=== PATIENT | female | born 2000 | race Caucasian/White ===

== ENCOUNTER 2024-12-10 16:44 | Emergency (ER) | payer OTHER ==
[2024-12-10 17:19] VITALS: TEMP 98.4
[2024-12-10] MEDS: SODIUM CHLORIDE 0.9% 1,000 ML IV ONE (17:54)
[2024-12-10] MEDS: ONDANSETRON 4 MG/2 ML VIAL IVP STA (17:55)
[2024-12-10 17:57] LABS: Basophils # (A) 0.04 10*3/uL (0.00-0.10); Basophils % (A) 0.4 %; Eosinophils # (A) 0.06 10*3/uL (0.04-0.35); Eosinophils % (A) 0.7 %; HCT 39.0 % (37.2-46.3); HGB 13.3 g/dL (12.0-15.0); Lymphocytes # (A) 1.96 10*3/uL (0.90-5.00); Lymphocytes % (A) 21.3 %; MCH 30.1 pg (27.0-32.0); MCHC 34.1 g/dL (32.0-37.0); MCV 88.2 fL (80.0-97.0); Monocytes # (A) 0.58 10*3/uL (0.20-1.00); Monocytes % (A) 6.3 %; Neutrophils # (A) 6.56 10*3/uL (1.80-7.70); Neutrophils % (A) 71.1 %; Platelet Count 235 10*3/uL (140-440); RBC 4.42 10*6/uL (4.10-5.20); RDW 13.0 % (11.5-14.5); WBC 9.22 10*3/uL (4.50-10.00)
--- NOTE | 2024-12-10 18:07 | ED ---
Nausea/Vomiting/Diarrhea HPI - General Source: patient, RN notes reviewed Mode of arrival: ambulatory Limitations: no limitations <Tanya Kumari - Last Filed: 12/10/24 19:19> <oDv Badillo - Last Filed: 12/11/24 02:36> - General Chief complaint: Nausea/Vomiting/Diarrhea Stated complaint: vomiting Time Seen by Provider: 12/10/24 17:40 - History of Present Illness Initial comments: 24-year-old G2, P1 female approximately 10 weeks gestation presenting to the ER for evaluation of nausea and vomiting. Patient states that she has been 5 weeks she has been having severe nausea and vomiting. [place] [facility] [place] Patient was ultimately discharged home prescribe Zofran. She states she was only prescribed 10 pills and has been using it sparingly. Patient reports 2 days ago she ran out of Zofran and and for the past 2 days has not been able to keep food or liquids down. She states everything that she attempts to eat she immediately vomits up. She denies any hematemesis or coffee-ground emesis. Patient denies any abdominal pain or vaginal bleeding or discharge. She does admit to urinary frequency and denies any hematuria or dysuria. Patient states she does have mild "kidney pain" and contributes this to dehydration. She does report with previous she was admitted as she has a history of kidney stones and had to have ureteral stent placement due to pyelonephritis. She denies any fevers, chills, chest pain, shortness of breath, dizziness, lightheadedness, headache, peripheral edema. She is scheduled to follow-up with BUSINESS REPORTING DEVELOPER out of [facility] on Friday for initial appointment. She does report she had ult rasound completed at 8 weeks which was normal per patient. (Tanya Kumari) - Related Data Previous Rx's Medication Instructions Recorded Cephalexin [Keflex] 500 mg PO Q12HR 5 Days #10 cap 12/10/24 Ondansetron Odt [Zofran Odt] 4 mg PO Q8HR PRN #20 tab 12/10/24 Allergies Allergy/AdvReac Type Severity Reaction Status Date / Time promethazine [From Phenergan] AdvReac Anaphylaxis Verified 12/10/24 17:19 Review of Systems ROS Other: All systems not noted in ROS Statement are negative. <Tanya Kumari - Last Filed: 12/10/24 19:19> ROS Other: All systems not noted in ROS Statement are negative. <Dov Badillo - Last Filed: 12/11/24 02:36> ROS Statement: Those systems with pertinent positive or pertinent negative responses have been documented in the HPI. Past Medical History Additional Past Medical History / Comment(s): renal stones Past Surgical History: Section, Orthopedic Surgery, Tonsillectomy Past Psychological History: Anxiety Smoking Status: Current every day smoker Past Alcohol Use History: None Reported Past Drug Use History: None Reported <Tanya Kumari - Last Filed: 12/10/24 19:19> General Exam Limitations: no limitations General appearance: alert, in no apparent distress Respiratory exam: Present: normal lung sounds bilaterally. Absent: respiratory distress, wheezes, rales, rhonchi, stridor Cardiovascular Exam: Present: regular rate, normal rhythm, normal heart sounds. Absent: systolic murmur, diastolic murmur, rubs, gallop, clicks GI/Abdominal exam: Present: soft, tenderness (LLQ), normal bowel sounds, other (Well-healed horizontal suprapubic surgical incision consistent with section) Extremities exam: Present: normal inspection, full ROM, normal capillary refill. Absent: tenderness, pedal edema, joint swelling, calf tenderness Neurological exam: Present: alert, oriented X3, CN II-XII intact Skin exam: Present: warm, dry, intact, normal color. Absent: rash <Tanya Kumari - Last Filed: 12/10/24 19:19> Course <Tanya Kumari - Last Filed: 12/10/24 19:19> Vital Signs 12/10/24 12/10/24 17:13 21:05 Temperature 98.4 F Pulse Rate 75 72 Respiratory 22 16 Rate Blood Pressure 121/67 116/79 O2 Sat by Pulse 99 100 Oximetry - Reevaluation(s) Reevaluation #1: 12/10/24 19:21 Patient signed out to Dov Badillo PA-C (Tanya Kumari) Medical Decision Making - Lab Data Result diagrams: 12/10/24 17:40 12/10/24 17:40 <Tanya Kumari - Last Filed: 12/10/24 19:19> - Lab Data Result diagrams: 12/10/24 17:40 12/10/24 17:40 <Dov Badillo - Last Filed: 12/11/24 02:36> - Medical Decision Making Was pt. sent in by a medical professional or institution ([facility], [employer], urgent care, hospital, or shelter...) When possible be specific @ -No Did you speak to anyone other than the patient for history (EMS, parent, family, police, friend...)? What history was obtained from this source @ -No Did you review nursing and triage notes (agree or disagree)? Why? @ -I reviewed and agree with nursing and triage notes Were old charts reviewed (outside hosp., previous admission, EMS record, old EKG, old radiological studies, urgent care reports/EKG's, shelter records)? Report findings @ -No old charts were reviewed Differential Diagnosis (chest pain, altered mental status, abdominal pain women, abdominal pain men, vaginal bleeding, weakness, fever, dyspnea, syncope, headache, dizziness, GI bleed, back pain, seizure, CVA, palpatations, mental health, musculoskeletal)? @ -UTI, gastroenteritis, hyperemesis syndrome, pyelonephritis, threatened ... This list is not meant to be all-inclusive EKG interpreted by me (3pts min.). @ -None done X-rays interpreted by me (1pt min.). @ -None done CT interpreted by me (1pt min.). @ -None done U/S interpreted by me (1pt. min.). @ -Pending What testing was considered but not performed or refused? (CT, X-rays, U/S, labs)? Why? @ -None What meds were considered but not given or refused? Why? @ -None Did you discuss the management of the patient with other professionals ( professionals i.e. RIK Beth, [employer], lab, RT, psych nurse, social sciences chair, banking representative, teacher, district fire management officer, human services case manager)? Give summary @ -No Was smoking cessation discussed for >3mins.? @ -No Was critical care preformed (if so, how long)? @ -No Were there social determinants of health that impacted care today? How? (Homelessness, low income, unemployed, alcoholism, drug addiction, transportation, low edu. Level, literacy, decrease access to med. care, penitentiary, rehab)? @ -No Was there de-escalation of care discussed even if they declined (Discuss DNR or withdrawal of care, Hospice)? DNR status @ -No What co-morbidities impacted this encounter? (DM, HTN, Smoking, COPD, CAD, Cancer, CVA, ARF, Chemo, Hep., AIDS, mental health diagnosis, sleep apnea, morbid obesity)? @ -, history of kidney stones Was patient admitted / discharged? Hospital course, mention meds given and route, prescriptions, significant lab abnormalities, going to OR and other pertinent info. @ -24-year-old female presented to the ER for evaluation of nausea and vomiting. Patient is G2, P1 approximately 10 weeks gestation. Vital signs stable. Upon my evaluation patient no signs of acute distress nontoxic- appearing. There is left lower quadrant abdominal tenderness on exam without rebound or guarding. CBC and CMP unimpressive. Serum hCG and urinalysis pending. ultrasound obtained given abdominal tenderness this is also pending at time of signout to Dov Badillo PA-C at my shift completion. (Tanya Kumari) Patient signed out to me pending ultrasound. Ultrasound shows single live IUP. Urine shows evidence of asymptomatic bacteria, we will treat with Keflex. Patient provided with Zofran for home. She reports she is feeling much better. Will follow-up with her BUSINESS REPORTING DEVELOPER on Friday. Follow-up with PCP. Report back to ER with any new or worsening symptoms. Discussed return parameters and answered all questions. Patient conveyed verbal understanding and agreed to the plan. I discussed this case in detail with my attending Dr. Pantoja Diagnosis/symptom? @Nausea vomiting in Acute, or Chronic, or Acute on Chronic? @Acute Uncomplicated (without systemic symptoms) or Complicated (systemic symptoms)? @Uncomplicated Side effects of treatment? @None Exacerbation, Progression, or Severe Exacerbation] @No Poses a threat to life or bodily function? @Unlikely (Dov Badillo) - Lab Data Lab Results 12/10/24 12/10/24 12/10/24 Range/Units 17:35 17:40 17:40 WBC 9.22 (4.50-10.00) 10*3/uL RBC 4.42 (4.10-5.20) 10*6/uL Hgb 13.3 (12.0-15.0) g/dL Hct 39.0 (37.2-46.3) % MCV 88.2 (80.0-97.0) fL MCH 30.1 (27.0-32.0) pg MCHC 34.1 (32.0-37.0) g/dL Plt Count 235 (140-440) 10*3/uL MPV 11.5 (9.5-12.2) fL Immature Gran % (Auto) 0.2 % Neutrophils % 71.1 % Lymphocytes % 21.3 % Monocytes % 6.3 % Eosinophils % 0.7 % Basophils % 0.4 % Immature Gran # 0.02 (0.00-0.04) 10*3/uL Neutrophils # 6.56 (1.80-7.70) 10*3/uL Lymphocytes # 1.96 (0.90-5.00) 10*3/uL Monocytes # 0.58 (0.20-1.00) 10*3/uL Eosinophils # 0.06 (0.04-0.35) 10*3/uL Basophils # 0.04 (0.00-0.10) 10*3/uL Sodium 138 (137-145) mmol/L Potassium 4.2 (3.5-5.1) mmol/L Chloride 105 (98-107) mmol/L Carbon Dioxide 24 (22-30) mmol/L Anion Gap 9 mmol/L BUN 6 L (7-17) mg/dL Creatinine 0.64 (0.52-1.04) mg/dL Est GFR (CKD-EPI)AfAm >90 (>60 ml/min/1.73 sqM) Est GFR (CKD-EPI)NonAf >90 (>60 ml/min/1.73 sqM) Glucose 84 (74-99) mg/dL Calcium 9.9 (8.4-10.2) mg/dL Total Bilirubin 0.5 (0.2-1.3) mg/dL AST 20 (14-36) U/L ALT 15 (4-34) U/L Alkaline Phosphatase 86 (38-126) U/L Total Protein 6.9 (6.3-8.2) g/dL Albumin 4.5 (3.5-5.0) g/dL HCG, Quant 62469.2 mIU/mL Urine Color Urine Appearance (Clear) Urine pH (5.0-8.0) Ur Specific [place] (1.001-1.035) Urine Protein (Negative) Urine Glucose (UA) (Negative) Urine Ketones (Negative) Urine Blood (Negative) Urine Nitrite (Negative) Urine Bilirubin (Negative) Urine Urobilinogen (<2.0) mg/dL Ur Leukocyte Esterase (Negative) Urine RBC (0-5) /hpf Urine WBC (0-5) /hpf Urine WBC Clumps (None) /hpf Ur Squamous Epith Cells (0-4) /hpf Urine Bacteria (None) /hpf Urine Mucus (None) /hpf Urine Yeast (Budding) (None) /hpf Blood Type AB Positive Blood Type Recheck No Previous Record Bld Type Recheck Status [facility] ONLY 12/10/24 Range/Units 18:53 WBC (4.50-10.00) 10*3/uL RBC (4.10-5.20) 10*6/uL Hgb (12.0-15.0) g/dL Hct (37.2-46.3) % MCV (80.0-97.0) fL MCH (27.0-32.0) pg MCHC (32.0-37.0) g/dL Plt Count (140-440) 10*3/uL MPV (9.5-12.2) fL Immature Gran % (Auto) % Neutrophils % % Lymphocytes % % Monocytes % % Eosinophils % % Basophils % % Immature Gran # (0.00-0.04) 10*3/uL Neutrophils # (1.80-7.70) 10*3/uL Lymphocytes # (0.90-5.00) 10*3/uL Monocytes # (0.20-1.00) 10*3/uL Eosinophils # (0.04-0.35) 10*3/uL Basophils # (0.00-0.10) 10*3/uL Sodium (137-145) mmol/L Potassium (3.5-5.1) mmol/L Chloride (98-107) mmol/L Carbon Dioxide (22-30) mmol/L Anion Gap mmol/L BUN (7-17) mg/dL Creatinine (0.52-1.04) mg/dL Est GFR (CKD-EPI)AfAm (>60 ml/min/1.73 sqM) Est GFR (CKD-EPI)NonAf (>60 ml/min/1.73 sqM) Glucose (74-99) mg/dL Calcium (8.4-10.2) mg/dL Total Bilirubin (0.2-1.3) mg/dL AST (14-36) U/L ALT (4-34) U/L Alkaline Phosphatase (38-126) U/L Total Protein (6.3-8.2) g/dL Albumin (3.5-5.0) g/dL HCG, Quant mIU/mL Urine Color Yellow Urine Appearance Turbid H (Clear) Urine pH 7.0 (5.0-8.0) Ur Specific [place] 1.027 (1.001-1.035) Urine Protein Trace H (Negative) Urine Glucose (UA) Negative (Negative) Urine Ketones Negative (Negative) Urine Blood Negative (Negative) Urine Nitrite Negative (Negative) Urine Bilirubin Negative (Negative) Urine Urobilinogen <2.0 (<2.0) mg/dL Ur Leukocyte Esterase Negative (Negative) Urine RBC 1 (0-5) /hpf Urine WBC 16 H (0-5) /hpf Urine WBC Clumps Occasional H (None) /hpf Ur Squamous Epith Cells 1 (0-4) /hpf Urine Bacteria Many H (None) /hpf Urine Mucus Many H (None) /hpf Urine Yeast (Budding) Few H (None) /hpf Blood Type Blood Type Recheck Bld Type Recheck Status Disposition <Tanya Kumari - Last Filed: 12/10/24 19:19> Is patient prescribed a controlled substance at d/c from ED?: No Time of Disposition: 20:34 <Dov Badillo - Last Filed: 12/11/24 02:36> Clinical Impression: Nausea and vomiting during , Asymptomatic bacteriuria Disposition: HOME SELF-CARE Condition: Good Instructions (If sedation given, give patient instructions): Nausea and Vomiting in (ED) Additional Instructions: Follow-up with your BUSINESS REPORTING DEVELOPER. Report back to ER with any new or worsening symptoms. Prescriptions: Cephalexin [Keflex] 500 mg PO Q12HR 5 Days #10 cap Ondansetron Odt [Zofran Odt] 4 mg PO Q8HR PRN #20 tab PRN Reason: Nausea Referrals: Debi Jose DO [Primary Care Provider] - 1-2 days
[2024-12-10 18:11] LABS: ALT 15 U/L (4-34); AST 20 U/L (14-36); African American GFR (CKD) >90 (>60 ml/min/1.73 sqM); Albumin 4.5 g/dL (3.5-5.0); Alkaline Phosphatase 86 U/L (38-126); Anion Gap 9 mmol/L; Blood Urea Nitrogen 6 mg/dL (7-17); Calcium 9.9 mg/dL (8.4-10.2); Carbon Dioxide 24 mmol/L (22-30); Chloride 105 mmol/L (98-107); Glucose 84 mg/dL (74-99); Non-African American GFR(CKD) >90 (>60 ml/min/1.73 sqM); Potassium 4.2 mmol/L (3.5-5.1); Sodium 138 mmol/L (137-145); Total Protein 6.9 g/dL (6.3-8.2)
[2024-12-10 19:16] LABS: Bacteria,Urine Many /hpf; Bilirubin,Urine Negative (Negative); Blood,Urine Negative (Negative); Budding Yeast,Urine Few /hpf; Color,Urine Yellow; Glucose,Urine (UA) Negative (Negative); Ketones,Urine Negative (Negative); Leukocyte Esterase,Urine Negative (Negative); Mucus,Urine Many /hpf; Nitrite,Urine Negative (Negative); PH, Urine 7.0 (5.0-8.0); Protein,Urine Trace (Negative); RBC,Urine 1 /hpf (0-5); Specific Gravity,Urine 1.027 (1.001-1.035); Squamous Epithelial Cell,Urine 1 /hpf (0-4); Urobilinogen,Urine <2.0 mg/dL (<2.0); WBC,Urine 16 /hpf (0-5)
[2024-12-10 19:26] LABS: HCG,Quantitative Serum 84324.2 mIU/mL
--- NOTE | 2024-12-10 20:06 | US ---
EXAMINATION TYPE: Transabdominal DATE OF EXAM: 12/10/2024 7:13 PM COMPARISON: NONE CLINICAL INDICATION: Female, 24 years old with history of LLQ abd pain- 10 weeks preg; nausea and vom iting TECHNIQUE: Transabdominal (TA) with grayscale and color Doppler imaging including first trimester pre gnancy. FINDINGS: EXAM MEASUREMENTS: GESTATIONAL AGE / DATING Physician Established: (10 weeks/2 days) EDC: 07/06/2024 Dates by LMP: (10 weeks/2 days) EDC: 07/06/2024 Dates by First Scan: No previous this is first scan Dates by Current Scan for: (10 weeks/0 days) EDC: 07/08/2025 MATERNAL ANATOMY Uterus: 11.7 x 8.0 x 7.7 cm Right Ovary: 4.5 x 2.9 x 3.1 cm Left Ovary: 3.1 x 3.1 x 2.6 cm Post CDS / Adnexa: wnl Presence of free fluid: no Presence of corpus luteal cyst: yes left Presence of subchorionic bleed: no GESTATION / SURVEY CRL: 3.14 cm (10 weeks/0 days) Cardiac Activity/Heart Rate: 175 bpm Rhythm: Normal IUP: Viable IUP IMPRESSION: 1. Single viable intrauterine . [facility], , 12/10/2024 8:04 PM
[2024-12-10 21:06] VITALS: BP 116/79; PULSE 72; RESP 16
== END 2024-12-10 21:06 | disposition home or self-care (01) ==
LOC: EC 16:44
DX: O21.9 Vomiting of pregnancy, unspecified (principal); O26.891 Other specified pregnancy related conditions, first trimester; R82.71 Bacteriuria; O99.331 Smoking (tobacco) complicating pregnancy, first trimester; F17.200 Nicotine dependence, unspecified, uncomplicated; Z88.8 Allergy status to other drugs, medicaments and biological substances; Z87.442 Personal history of urinary calculi; Z3A.10 10 weeks gestation of pregnancy
CPT/HCPCS: 36415; 86900; 86901; 80053; 85025; 81001; 84702; 87086; 76801; 99284; 96374; 96361; J2405